=== PATIENT | female | born 1975 | race African-American/Black ===

== ENCOUNTER 2017-12-16 10:19 | Outpatient (CLI) | payer OTHER ==
[~2017-12-16 10:19] MED LIST: ALPR0.5T24 PO; CITALOPRAM20 MG PO
== END 2017-12-16 19:58 | disposition home or self-care (01) ==
LOC: MAMMO 10:19
DX: Z12.31 Encounter for screening mammogram for malignant neoplasm of breast (principal)

== ENCOUNTER 2018-12-19 10:07 | Outpatient (CLI) | payer OTHER | END 2018-12-19 22:24 | disposition home or self-care (01) | LOC: MAMMO 10:07 | DX: Z12.31 Encounter for screening mammogram for malignant neoplasm of breast (principal) ==